=== PATIENT | male | born 1995 | race Caucasian/White ===

== ENCOUNTER 2017-12-29 14:17 | Emergency (ER) | payer OTHER | END 2017-12-29 15:27 | disposition home or self-care (01) | LOC: E/R 14:17 | DX: M25.512 Pain in left shoulder (principal) | CPT/HCPCS: 73030; 99283-25 ==

== ENCOUNTER 2018-07-18 09:53 | Emergency (ER) | payer SELFPAY, OTHER ==
[2018-07-18] MEDS: ONDANSETRON 4 MG INJ IV (10:03)
[2018-07-18] MEDS: HYDROmorphONE 1 MG/ML SYG IV (10:04)
[2018-07-18] MEDS: SOD CHLORIDE 0.9% 1,000 ML IV (10:04)
[2018-07-18] MEDS: PROPOFOL 200 MG INJ IV (11:00)
== END 2018-07-18 12:14 | disposition home or self-care (01) ==
LOC: E/R 09:53
DX: S43.015A Anterior dislocation of left humerus, initial encounter (principal); X58.XXXA Exposure to other specified factors, initial encounter; Y92.9 Unspecified place or not applicable
CPT/HCPCS: 23650; 73030; 94770; 96374; 96375; 99291-25

== ENCOUNTER 2018-11-25 11:20 | Emergency (ER) | payer SELFPAY ==
[2018-11-25] MEDS: KETOROLAC 15 MG INJ IV (12:50)
[2018-11-25] MEDS: SOD CHLORIDE 0.9% 1,000 ML IV (12:50)
[2018-11-25] MEDS: PROPOFOL 100 ML IV (13:15)
== END 2018-11-25 14:18 | disposition home or self-care (01) ==
LOC: E/R 11:20
DX: M24.412 Recurrent dislocation, left shoulder (principal)
CPT/HCPCS: 23650; 36415; 73030; 94770; 96374; 99285-25